=== PATIENT | female | born 1955 | race Caucasian/White ===

== ENCOUNTER 2017-07-19 12:37 | Emergency (ER) | payer BC ==
[2017-07-19 13:00] VITALS: BP 146/96; PULSE 57; TEMP 98.1; BMI 25.8
--- NOTE | 2017-07-19 14:18 | PDOC ---
History of Present Illness - General Chief Complaint: Pain Stated Complaint: RT KNEE PAIN Time Seen by Provider: 07/19/17 13:57 History Source: Patient Exam Limitations: No Limitations Past History - Past Medical History Allergies/Adverse Reactions: Allergies Allergy/AdvReac Type Severity Reaction Status Date / Time No Known Allergies Allergy Verified 07/19/17 13:00 Home Medications: Ambulatory Orders Amlodipine Besylate 5 mg PO ASDIR 07/19/17 Phenytoin Na Extended [Dilantin -] 100 mg PO DAILY 07/19/17 Warfarin Na [Coumadin] 2 mg PO ASDIR 07/19/17 Warfarin Na [Coumadin] 5 mg PO ASDIR 07/19/17 COPD: No DVT: Yes (left arm) Seizures: Yes - Suicide/Smoking/Psychosocial Hx Smoking History: Never smoked *Physical Exam - Vital Signs Last Vital Signs Temp Pulse Resp BP Pulse Ox 98.1 F 57 L 18 146/96 99 07/19/17 12:57 07/19/17 12:57 07/19/17 12:57 07/19/17 12:57 07/19/17 12:57 *DC/Admit/Observation/Transfer Diagnosis at time of Disposition: Knee pain Qualifiers: Chronicity: acute Laterality: right Qualified Code(s): M25.561 - Pain in right knee - Discharge Dispostion Disposition: HOME Condition at time of disposition: Stable Admit: No - Referrals Referrals: Bird Hernandez [Primary Care Provider] - Ascencion Pandya MD [Staff Physician] - - Patient Instructions Printed Discharge Instructions: DI for Knee Sprain Additional Instructions: You sprained your knee. Please take Tylenol to help with the pain and swelling. Follow the dosing instructions on the bottle. Wear the Isidro wrap for support and comfort. You may continue to ice the knee today. Use heat to help with the pain tomorrow. Elevate the leg when resting to help reduce swelling. Please follow-up with or without next week if symptoms are not resolving. Return to the emergency department if you have worsening pain, worsening swelling, fevers, cannot move your leg, or if you have any changes in her symptoms. - Post Discharge Activity Forms/Work/School Notes: Back to Work
== END 2017-07-19 14:19 | disposition home or self-care (01) ==
LOC: JERFT 12:37
DX: M25.561 Pain in right knee (principal); Z86.718 Personal history of other venous thrombosis and embolism; Z79.01 Long term (current) use of anticoagulants
CPT/HCPCS: 99281-25